=== PATIENT | female | born 1960 | race Caucasian/White ===

== ENCOUNTER 2016-10-16 16:56 | Inpatient (IN) | payer BC ==
[~2016-10-16] VITALS: Ht 172.7 cm; Wt 54.5 kg
[2016-10-16 18:26] LABS: BASO % 0.5 % (0.0-2.0); EOS # 0.2 (0.0-0.7); EOS % 2.2 % (0-4.0); HEMATOCRIT 38.9 % (37.0-47.0); HEMOGLOBIN 13.3 g/dl (12.5-16.0); LYMPH # 2.3 (1.2-3.4); LYMPH % 26.4 % (20.0-51.0); MEAN CELL VOLUME 100 fl (80.0-100.0); MEAN CORPUSCULAR HEMOGLOBIN 34 pg (27.0-31.0); MEAN CORPUSCULAR HGB CONC 34 g/dl (33.0-37.0); MEAN PLATELET VOLUME 9.1 fl (7.4-10.4); PLATELET COUNT 290 K/mm3 (130-400); REDCELL DISTRIBUTION WIDTH-CV 11.8 % (11.5-14.5); WHITE BLOOD COUNT 8.6 K/mm3 (4.8-10.8)
[2016-10-16 18:39] LABS: ADJUSTED CALCIUM 9.2 mg/dL (8.4-10.2); ALBUMIN 4.7 gm/dL (3.5-5.0); BILIRUBIN,TOTAL 0.6 mg/dL (0.0-1.0); CALCIUM 9.8 mg/dL (8.4-10.2); CREATININE, serum 0.61 mg/dL (0.52-1.25); POTASSIUM 3.6 mmol/L (3.4-5.0); TOTAL PROTEIN 7.3 gm/dL (6.4-8.2)
[2016-10-16 18:50] LABS: PROTHROMBIN TIME 10.5 SECONDS (9.7-12.8)
[2016-10-16 18:53] LABS: PH 5 (5-8); SQUAMOUS EPITHELIAL 0-2 /hpf; URINE APPEARANCE Clear; URINE BACTERIA None Seen /hpf; URINE BILIRUBIN Negative (NEGATIVE); URINE BLOOD Negative (NEGATIVE); URINE COLOR Yellow; URINE GLUCOSE Negative (NEGATIVE); URINE KETONE Negative (NEGATIVE); URINE RBC 0-2 /hpf; URINE UROBILINOGEN Negative (NEGATIVE); URINE WBC 0-2 /hpf
[2016-10-16] MEDS ORDERED: ZOCOR 40MG40 MG PO (18:59)
[2016-10-16] MEDS ORDERED: CARDIZEM 90MG T90 MG PO (19:00)
[2016-10-16 19:38] VITALS: BP 132/76; PULSE 75; TEMP 98.5
[2016-10-16 22:21] LABS: PH 6 (5-8); SQUAMOUS EPITHELIAL 0-2 /hpf; URINE APPEARANCE Clear; URINE BACTERIA None Seen /hpf; URINE BILIRUBIN Negative (NEGATIVE); URINE BLOOD Negative (NEGATIVE); URINE COLOR Yellow; URINE GLUCOSE Negative (NEGATIVE); URINE KETONE Trace (NEGATIVE); URINE RBC None Seen /hpf; URINE UROBILINOGEN Negative (NEGATIVE); URINE WBC 0-2 /hpf
[2016-10-17] VITALS (14 sets, daily range): BP systolic 118–169; BP diastolic 68–92; PULSE 77–99; TEMP 97.4–99.1
[2016-10-18 01:46] VITALS: BP 130/70; PULSE 87; TEMP 98.6
[2016-10-18 05:00] VITALS: BP 110/64; PULSE 75; TEMP 98.6
[2016-10-18 07:13] LABS: HEMATOCRIT 34.5 % (37.0-47.0); HEMOGLOBIN 11.6 g/dl (12.5-16.0)
[2016-10-18 09:51] VITALS: BP 118/70; PULSE 80; TEMP 98.6
[2016-10-18] MEDS ORDERED: ASPIRIN 32325 MG/TA1 PO (12:02)
[2016-10-18] MEDS ORDERED: NORCO 325 MG-51 TAB PO (12:21)
== END 2016-10-18 13:10 | disposition home or self-care (01) | DRG 470 ==
LOC: COL.ER 16:56 → SURG 18:51
PROVIDERS: Family Medicine; Nurse Practitioner; Orthopaedic Surgery; Physician Assistant
PROC: 0SRR0J9 Replacement of Right Hip Joint, Femoral Surface with Synthetic Substitute, Cemented, Open Approach (ICD-10-PCS; principal; 2016-10-17 08:30)
DX: S72.001A Fracture of unspecified part of neck of right femur, initial encounter for closed fracture (principal); D62 Acute posthemorrhagic anemia; E78.5 Hyperlipidemia, unspecified; F17.210 Nicotine dependence, cigarettes, uncomplicated; W10.8XXA Fall (on) (from) other stairs and steps, initial encounter; Z95.5 Presence of coronary angioplasty implant and graft; Y92.511 Restaurant or cafe as the place of occurrence of the external cause
CPT/HCPCS: 99222-AI; 99239; A4315; A9284; C1776; J1170; J1885; J2060; J2250; J2270; J2405; J2550; J2704; J7030; J7120